=== PATIENT | female | born 1975 | race Caucasian/White ===

== ENCOUNTER 2022-12-16 17:40 | Emergency (ER) | payer OTHER ==
[~2022-12-16] VITALS: Ht 170.2 cm; Wt 137.0 kg
[2022-12-16 17:47] VITALS: BP 134/108
--- NOTE | 2022-12-16 18:15 | NUR ---
47YO FEMALE BIBA FROM [facility] C/O INCREASED CALEB LOWER LEG PAIN X3DAYS. REPORTS REOCCURING CELLULITIS [id number]. PRESENTS W/ CALEB LL REDDENED SWELLING. DENIES TAKING MEDICATION, FEVER,CHILLS, N/V/D, CHEST PAIN OR SOB. PT AAOX4, AMB W/ STEADY GAIT -FOR SHORT DISTANCE. WHEELCHAIR AT BEDSIDE .HOB POSITIONED PER COMFORT. HX: CHF, HTN, OBESITY, BIPOLAR NKA
--- NOTE | 2022-12-16 18:17 | NUR ---
MD AGUILAR AT BEDSIDE FOR EVALUATION
--- NOTE | 2022-12-16 18:55 | NUR ---
XRAY AT BEDSIDE
--- NOTE | 2022-12-16 19:05 | NUR ---
PT REFUSING CHEST XRAY. " MY BREATHING IS FINE". MADE AWARE.
--- NOTE | 2022-12-16 19:10 | NUR ---
LAB AT BEDSIDE
--- NOTE | 2022-12-16 19:20 | NUR ---
REPORT GIVEN TO BOOGIE SERRATO. TRANSFER OF CARE AT THIS TIME
[2022-12-16 19:59] LABS: BASOPHILS % (AUTO) 0.6 % (0.0-2.0); EOSINOPHILS # (AUTO) 0.2 K/uL (0-0.4); HEMATOCRIT 32.7 % (36-48); HEMOGLOBIN 10.4 g/dL (12.0-16.0); LYMPHOCYTES # (AUTO) 1.3 K/uL (2.5-16.5); LYMPHOCYTES % (AUTO) 21.1 % (20.5-51.1); MEAN CORPUSCULAR HEMOGLOBIN 26 pg (27-31); MEAN CORPUSCULAR HGB CONC 32 g/dL (33-37); MEAN CORPUSCULAR VOLUME 80.8 fL (80-94); MONOCYTES # (AUTO) 0.5 K/uL (0.8-1.0); MONOCYTES % (AUTO) 7.8 % (1.7-9.3); NEUTROPHILS # (AUTO) 4.1 K/uL (1.8-7.7); NEUTROPHILS % (AUTO) 66.5 % (42.2-75.2); PLATELET COUNT (AUTO) 243 K/uL (140-450); RED BLOOD CELL COUNT(AUTO) 4.05 MIL/uL (4.20-5.40); WHITE BLOOD COUNT (AUTO) 6.2 K/uL (4.8-10.8)
--- NOTE | 2022-12-16 20:09 | NUR ---
PT RESTING IN BED. ON BEDSIDE MONITOR. RESP EVEN AND UNLABORED. PT IS A&OX4. IV CATH PLACED IN 24G R UPPER ARM. LABS OBTAINED AND SENT TO LAB. SKIN WARM AND DRY. PT USES WHEELCHAIR . CALEB LOWER EXT SWELLING HX OF CELLULITIS TO EXT. PT REFUSES TO TAKE OF PANTS. HOB ELEVATED. BED AT LOWEST POSITION SIDE RAILS UP X2
[2022-12-16 20:20] LABS: ALBUMIN 3.4 g/dL (3.4-5.0); ANION GAP 8.5 (8-16); CARBON DIOXIDE 31.5 mmol/L (21-32); CREATININE 0.8 mg/dL (0.6-1.3); TOTAL BILIRUBIN 0.3 mg/dL (0.0-1.0)
[2022-12-16 22:03] VITALS: BP 134/108
--- NOTE | 2022-12-16 22:03 | NUR ---
Patient discharged with v/s stable. Written and verbal after care instructions given and explained. Patient verbalized understanding. Ambulatory with steady gait. All questions addressed prior to discharge. Advised to follow up with PMD.
--- NOTE | 2022-12-16 22:17 | NUR ---
The patient's care was reviewed and supervised by Odilia Snider RN.
== END 2022-12-16 22:03 | disposition home or self-care (01) ==
LOC: MED 17:40
DX: R60.0 Localized edema (principal); M17.11 Unilateral primary osteoarthritis, right knee; I50.9 Heart failure, unspecified; E66.01 Morbid (severe) obesity due to excess calories; Z68.42 Body mass index [BMI] 45.0-49.9, adult; Z98.890 Other specified postprocedural states
CPT/HCPCS: 36415; 73562; 80053; 81025; 83880; 84484; 85025; 93005; 99285; Q0092